=== PATIENT | female | born 1970 | race Caucasian/White ===

== ENCOUNTER 2018-10-14 19:25 | Emergency (ER) | payer SELFPAY ==
[2018-10-14 19:25] VITALS: BMI 24.3
[2018-10-14 20:09] VITALS: RESP 18
[2018-10-14] MEDS ORDERED: Sodium Chloride 0.9% 1,000 ML IV STA (20:48)
--- NOTE | 2018-10-14 20:52 | ED PDOC ---
HPI: Abdomen Time Seen by Provider: 10/14/18 20:29 Chief Complaint (Nursing): Abdominal Pain Chief Complaint (Provider): abdominal pain History Per: Patient History/Exam Limitations: no limitations Onset/Duration Of Symptoms: Days (4) Current Symptoms Are (Timing): Still Present Location Of Pain/Discomfort: Epigastric Associated Symptoms: Chills, Nausea, Vomiting Last Bowel Movement: Today Additional Complaint(s): 48 y/o female presents for evaluation of epigastric abdominal pain x 4 days. Associated headache, nausea, vomiting (x2) today. Denies fever, cough, congestion, chest pain, shortness of breath, palpitations, changes in bowel movements, urinary symptoms, recent travel, sick contacts. Patient states she started Flagyl 2 days prior to onset of symptoms prescribed by Dentist, unknown if related Past Medical History Reviewed: Historical Data, Nursing Documentation, Vital Signs Vital Signs: Last Vital Signs Temp 99 F 10/14/18 20:01 Pulse 84 10/14/18 20:01 Resp 18 10/14/18 20:01 BP 119/83 10/14/18 20:01 Pulse Ox 99 10/14/18 20:01 - Medical History PMH: Arthritis - Surgical History Surgical History: Appendectomy - Family History Family History: States: No Known Family Hx - Living Arrangements Living Arrangements: With Family - Home Medications Home Medications: Ambulatory Orders Medication Instructions Recorded Azithromycin [Zithromax] 250 mg PO DAILY #6 cap 09/29/14 Codeine Phos/Phenyleph HCl/P 5 ml PO Q6H #100 syr 09/29/14 [Phenergan Vc W/Codeine 120 ml] Famotidine [Pepcid] 20 mg PO BID #20 tab 10/15/18 Nitrofurantoin Macrocrystals 100 mg PO BID #9 cap 10/15/18 [Macrobid] Ondansetron [Zofran] 4 mg PO Q8H PRN #10 tab 10/15/18 - Allergies Allergies/Adverse Reactions: Allergies Allergy/AdvReac Type Severity Reaction Status Date / Time Penicillins Allergy RASH Verified 10/14/18 20:00 Review of Systems ROS Statement: Except As Marked, All Systems Reviewed And Found Negative Gastrointestinal: Positive for: Nausea, Vomiting, Abdominal Pain Neurological: Positive for: Headache Physical Exam - Reviewed Nursing Documentation Reviewed: Yes Vital Signs Reviewed: Yes - Physical Exam Appears: Positive for: Well, Non-toxic, No Acute Distress Head Exam: Positive for: ATRAUMATIC, NORMAL INSPECTION, NORMOCEPHALIC Skin: Positive for: Normal Color Eye Exam: Positive for: Normal appearance ENT: Positive for: Normal ENT Inspection Cardiovascular/Chest: Positive for: Regular Rate, Rhythm Respiratory: Positive for: Normal Breath Sounds Gastrointestinal/Abdominal: Positive for: Bowel Sounds, Soft, Tenderness (epigastric) Back: Positive for: Normal Inspection Extremity: Positive for: Normal ROM Neurologic/Psych: Positive for: Alert, Oriented (x3) - Laboratory Results Result Diagrams: 10/14/18 21:03 10/14/18 21:03 - ECG O2 Sat by Pulse Oximetry: 99 - Progress ED Course And Treament: -upreg -cbc -cmp -lipase -urinalysis -RUQ u/s -IV NS bolus -IV zofran -IV pepcid -IV toradol Date of service: 10/14/2018 History Upper abdominal pain. Comparison None. Technique Sonographic evaluation of the right upper quadrant of the abdomen. Findings Liver Measures 15.2 cm in length. Normal echogenicity of the liver parenchyma. Smooth contour. No mass. No intrahepatic bile duct dilatation. Gallbladder Unremarkable. No gallstones. No sludge. No wall edema. Gallbladder wall thickness is 1.7 mm. Negative Williams sign. Common bile duct Measures 3.2 mm. No stones. No dilatation. Pancreas Unremarkable as visualized. No mass. No ductal dilatation. Right kidney Measures 10.1 x 5.7 x 4.2 cm. Normal echogenicity. No calculus, mass, or hydronephrosis. Aorta No aneurysmal dilatation. IVC Unremarkable. Other Findings None. Impression Normal Study. On re-eval, patient states she is feeling better; tolerating PO Patient educated on findings, discharged with rx Macrobid, Pepcid, Zofran Advised follow up PMD within 2-3 days Return precautions given Disposition - Clinical Impression Clinical Impression: UTI (urinary tract infection), Abdominal pain - Patient ED Disposition Is Patient to be Admitted: No Counseled Patient/Family Regarding: Studies Performed, Diagnosis, Need For Followup, Rx Given - Disposition Referrals: [facility] [Outside] Disposition: Routine/Home Disposition Time: 00:05 Condition: IMPROVED Prescriptions: Famotidine [Pepcid] 20 mg PO BID #20 tab Nitrofurantoin Macrocrystals [Macrobid] 100 mg PO BID #9 cap Ondansetron [Zofran] 4 mg PO Q8H PRN #10 tab PRN Reason: Nausea/Vomiting Instructions: Urinary Tract Infections in Adults, Gastritis Forms: [facility] (Indonesian) Print Language: PASHTO
[2018-10-14 21:11] LABS: BASO % 0.5 % (0.0-2.0); EOS # 0.4 K/uL (0.0-0.7); HEMOGLOBIN 13.1 g/dL (12.0-16.0); LYMPH # 3.4 K/uL (1.0-4.3); LYMPH % 46.6 % (20.0-40.0); MEAN CORPUSCULAR HEMOGLOBIN 32.6 pg (27.0-31.0); MEAN PLATELET VOLUME 8.7 fl (7.2-11.7); MONO # 0.4 K/uL (0.0-0.8); MONO % 5.7 % (0.0-10.0); NEUT % 41.2 % (50.0-75.0); NRBC % 0.1 % (0.0-0.0); RED CELL DISTRIBUTION WIDTH 14.1 % (11.5-14.5); WHITE BLOOD COUNT 7.3 K/uL (4.8-10.8)
[2018-10-14 21:31] LABS: ALT/SGPT 93 U/L (9-52); AST/SGOT 74 U/L (14-36); BLOOD UREA NITROGEN 21 mg/dl (7-17); CALCIUM 9.5 mg/dL (8.4-10.2); GFR NON-AFRICAN AMERICAN > 60; LIPASE 90 U/L (23-300)
[2018-10-14 21:35] LABS: SQUAMOUS EPITHIAL 1 /hpf (0-5); URINE BACTERIA FEW (<OCC); URINE BILIRUBIN NEGATIVE (NEGATIVE); URINE BLOOD NEGATIVE (NEGATIVE); URINE CLARITY SLIGHTY-CLOUDY (Clear); URINE COLOR YELLOW (YELLOW); URINE GLUCOSE (UA) NEG (NEGATIVE); URINE LEUKOCYTE ESTERASE TRACE Leu/uL (Negative); URINE PROTEIN NEGATIVE (NEGATIVE); URINE UROBILINOGEN 0.2-1.0 mg/dL (0.2-1.0)
[2018-10-14 23:58] VITALS: BP 122/70; PULSE 70; TEMP 98.1
[2018-10-15 00:07] VITALS: O2SAT 99
--- NOTE | 2018-10-15 11:48 | US ---
Date of service: 10/14/2018 HISTORY: upper abd pain COMPARISON: None. TECHNIQUE: Sonographic evaluation of the right upper quadrant of the abdomen. FINDINGS: LIVER: Measures 15.2 cm in length. Normal echogenicity of the liver parenchyma. No mass. No intrahepatic bile duct dilatation. GALLBLADDER: There are no gallstones, wall thickening or pericholecystic fluid. The sonographic Rivas's sign is negative. COMMON BILE DUCT: Measures 3.2 mm. No stones. No dilatation. PANCREAS: Unremarkable as visualized. No mass. No ductal dilatation. RIGHT KIDNEY: Measures 10.1 cm in length. Normal echogenicity. No calculus, mass, or hydronephrosis. AORTA: No aneurysmal dilatation. IVC: Unremarkable. OTHER FINDINGS: None . IMPRESSION: No cholelithiasis or biliary dilatation. A preliminary report was provided by [employer].
== END 2018-10-15 00:17 | disposition home or self-care (01) ==
LOC: H.ER 19:25
DX: N39.0 Urinary tract infection, site not specified (principal); R10.13 Epigastric pain
CPT/HCPCS: 76705; 80053; 81003; 81025; 83690; 85025; 87086; 96361; 96374; 96375; 99284; J1885; J2405; J7030